=== PATIENT | male | born 1985 | race African-American/Black ===

== ENCOUNTER 2020-06-03 12:36 | Outpatient (REF) | payer MEDICAID, SELFPAY | END 2020-06-03 12:37 | disposition home or self-care (01) | LOC: HO.LAB 12:36 | PROVIDERS: PCP Internal Medicine; Visit Provider Internal Medicine | DX: Z20.828 Contact with and (suspected) exposure to other viral communicable diseases (principal) | CPT/HCPCS: C9803; U0003 ==

== ENCOUNTER 2020-11-11 09:09 | Outpatient (REF) | payer MEDICAID, SELFPAY ==
--- NOTE | ~2020-11-11 | XR_ITS ---
EXAMINATION: XR WRIST, RIGHT CLINICAL INFORMATION: M25.531 - Pain in right wrist COMPARISON: Radiographs right wrist 07/27/2019, MR right wrist 10/18/2019. TECHNIQUE: The right wrist is imaged in 3 views. FINDINGS: Bony mineralization appears normal. The ulnar variance is neutral. There is dorsal bowing distal ulna. Small metallic orthopedic anchor is within the distal ulnar. There is no acute or healing fracture or destructive process. No periostitis. No dislocation. No joint narrowing or erosive change. XR/XR wrist RT min 3V IMPRESSION: 1. Orthopedic metallic anchor within the distal ulna. Dorsal bowing distal ulnar. 2. No acute or healing fracture, dislocation, destructive process, or arthropathy.
== END 2020-11-11 09:10 | disposition home or self-care (01) ==
LOC: HO.HOSX 09:09
PROVIDERS: Visit Provider Orthopaedic Surgery
DX: M25.531 Pain in right wrist (principal)
CPT/HCPCS: 73110; 99202

== ENCOUNTER → 2021-01-03 14:23 | Outpatient (BNVA) | payer MEDICAID, SELFPAY | PROVIDERS: PCP Internal Medicine; Visit Provider Nurse Practitioner Family | DX: M25.531 Pain in right wrist (principal); M79.18 Myalgia, other site; M54.2 Cervicalgia | CPT/HCPCS: 99202 ==

== ENCOUNTER → 2021-01-15 13:37 | Outpatient (BNVA) | payer MEDICAID, SELFPAY | PROVIDERS: Visit Provider Orthopaedic Surgery | DX: M25.531 Pain in right wrist (principal) | CPT/HCPCS: 99212 ==

== ENCOUNTER → 2021-02-04 14:24 | Outpatient (BNVA) | payer MEDICAID, SELFPAY | PROVIDERS: PCP Internal Medicine; Visit Provider Nurse Practitioner Family | DX: M25.531 Pain in right wrist (principal); M79.18 Myalgia, other site; M54.2 Cervicalgia | CPT/HCPCS: 99212 ==

== ENCOUNTER 2022-05-11 08:57 | Outpatient (REF) | payer MEDICAID, SELFPAY ==
--- NOTE | ~2022-05-11 | US_ITS ---
EXAMINATION: US ABDOMEN COMPLETE CLINICAL INFORMATION: Abdominal pain. COMPARISON: CT abdomen without contrast 09/05/2018. Ultrasound abdomen complete 01/11/2017. TECHNIQUE: Real-time imaging of the abdominal viscera. FINDINGS: PANCREAS: Normal ABDOMINAL AORTA: The proximal, mid, and distal segments are normal in caliber. INFERIOR VENA CAVA: Visualized portions are normal. LIVER: Normal. The liver is normal in size. The liver contour is normal. Parenchymal echogenicity is normal. No focal hepatic lesion. There is no intrahepatic biliary duct dilatation seen. GALLBLADDER: The gallbladder is physiologically distended. Multiple mobile gallstones are present. No evidence of gallbladder wall thickening or pericholecystic fluid. COMMON BILE DUCT: Normal in caliber measuring 0.3 cm in diameter. RIGHT KIDNEY: Normal. No hydronephrosis. No renal calculi or focal parenchymal lesions. The kidney measures 12.0 cm in maximum dimension. LEFT KIDNEY: Normal. No hydronephrosis. No renal calculi or focal parenchymal lesions. The kidney measures 13.0 cm in maximum dimension. SPLEEN: Normal. The spleen measures 11.2 cm in maximum dimension. FREE FLUID: None US/US abdomen complete IMPRESSION: Cholelithiasis without wall thickening. The rest of the abdominal ultrasound is unremarkable.
== END 2022-05-11 08:58 | disposition home or self-care (01) ==
LOC: HO.US 08:57
PROVIDERS: Visit Provider Internal Medicine
DX: K85.90 Acute pancreatitis without necrosis or infection, unspecified (principal); R10.9 Unspecified abdominal pain
CPT/HCPCS: 76700

== ENCOUNTER 2023-01-05 12:48 | Outpatient (REF) | payer MEDICAID, SELFPAY ==
[2023-01-05 16:33] LABS: MANUAL DIFF FLAG NO
[2023-01-05 16:37] LABS: Basophils Absolute Auto 0.1 X10*3/uL (0.0-0.2); Eosinophils Absolute Auto 0.2 X10*3/uL (0.0-0.4); Eosinophils Percent Auto 2.2 % (0-4); Hematocrit 44.7 % (42.0-52.0); Hemoglobin 15.1 g/dl (14.0-18.0); Imm Gran Abs Auto 0.02 X10*3/uL (0.00-0.03); Imm Gran Pct Auto 0.3 % (0.0-0.4); Lymphocytes Absolute Auto 2.2 X10*3/uL (1.2-4.9); Lymphocytes Percent Auto 32.8 % (20-40); Mean Corpuscular HGB Conc 33.8 g/dl (31.0-36.0); Mean Corpuscular Hemoglobin 26.2 pg (27.0-33.0); Mean Corpuscular Volume 77.6 fL (80.0-98.0); Mean Platelet Volume 9.9 fL (9.4-12.4); Monocytes Absolute Auto 0.4 X10*3/uL (0.1-1.2); Monocytes Percent Auto 6.5 % (2-11); Neutrophils Absolute Auto 3.9 x10*3/uL (2.0-8.3); Neutrophils Percent Auto 57.2 % (45-73); Platelet Count 209 X10*3/uL (160-400); Red Blood Count 5.76 X10*6/uL (4.60-5.80); White Blood Count 6.7 X10*3/uL (4.8-10.8)
[2023-01-05 16:51] LABS: Estimated Average Glucose 108 mg/dL; Hemoglobin A1c % 5.4 %
[2023-01-05 16:59] LABS: Alanine Aminotransferase 22 U/L (0-40); Albumin Level 4.7 g/dL (3.5-5.0); Alkaline Phosphatase 65 U/L (39-117); Anion Gap 16 (12-20); Aspartate Amino Transferase 21 U/L (5-37); Bilirubin Total 0.5 mg/dL (0.0-1.0); Blood Urea Nitrogen 9 mg/dL (9-16); Calcium 9.9 mg/dL (8.4-10.2); Carbon Dioxide 23 mmol/L (22-29); Chloride 106 mmol/L (96-108); Estimated Glomerular Filt Rate > 60; Glucose Random 103 mg/dL (60-115); Potassium 4.3 mmol/L (3.3-5.1); Sodium 141 mmol/L (135-145); Total Protein 7.9 g/dL (6.5-8.0)
[2023-01-05 17:19] LABS: TSH reflex Free T4 0.92 uIU/mL (0.32-4.0)
[2023-01-05 17:33] LABS: Folate 9.8 ng/mL (> or = 4.0); Vitamin B12 528 pg/mL (200-900)
== END 2023-01-05 12:49 | disposition home or self-care (01) ==
LOC: HO.HHCL 12:48
PROVIDERS: Visit Provider Internal Medicine
DX: K80.20 Calculus of gallbladder without cholecystitis without obstruction (principal); K29.20 Alcoholic gastritis without bleeding; R53.83 Other fatigue
CPT/HCPCS: 36415; 80053; 82607; 82746; 83036; 84443; 85025

== ENCOUNTER 2023-02-23 10:29 | Outpatient (AMB) | payer MEDICAID, SELFPAY ==
--- NOTE | 2023-02-23 10:31 | MHC.OFFVIS ---
Intake Vital Signs 02/23/23 10:39 Height 5 ft 6 in Weight 200 lb BMI 32.3 BP 112/65 Blood Pressure Location Lt brachial Position Sitting Pulse 79 Intake Visit Reasons: Cholelithiasis Intake Note: Patient is seen in office for evaluation and treatment of cholelithiasis. Patient c/o: admits to abdominal pain for the past month, minimal nausea, denies vomit, diarrhea, constipation, had prior imaging done, Puttier Required: No Accompanied by: Family/Other Allergies seafood Allergy (Verified 02/23/23 10:37) Unknown Medication List - Last Reconciled 02/23/23 by Poncho Tolliver MD No Known Home Meds HPI HPI Comments History of Present Illness Details 38-year-old male patient presenting for evaluation of gallstones. He reports intermittent abdominal pain mainly in the right upper quadrant. He apparently was found to have elevated liver functions as well and subsequently underwent evaluation with ultrasound of the abdomen. Evaluation revealed multiple gallstones within the gallbladder without evidence of wall thickening or pericholecystic fluid. Common bile duct was normal as well. Patient presents today to discuss possible cholecystectomy. He reports intolerance of fatty foods, usually immediately after eating the food. He denies nausea, vomiting, fever, or chills. His bowels have been normal. FORMERLY [facility] Medical History Seasonal allergic rhinitis Surgical History H/O right wrist surgery Family History Mother HTN (hypertension) Social History Alcohol intake: current Patient Tobacco Use Status: Never used Tobacco Substance Use Type: Marijuana Current occupational status: unemployed Current occupation: rt hand Review of Systems Const All systems reviewed & are unremarkable except as noted in HPI and below GI Reports as per HPI and Reports abdominal pain Physical Exam Vital Signs: Last Vital Signs Pulse 79 02/23/23 10:39 BP 112/65 02/23/23 10:39 BMI result Body Mass Index 32.3 Const General: cooperative and no acute distress Nutritional Appearance: well nourished Orientation/consciousness: patient oriented x3 Limitations: no limitations HEENT Head: Yes normocephalic and Yes atraumatic Ears: hearing grossly normal bilaterally Resp Effort & Inspection: normal respiratory effort, no audible wheezes, no cough and no respiratory distress Cardio Jugular venous distension: no JVD GI Inspection: Yes normal to inspection Palpation (GI): Soft to palpation, nontender, no guarding and not rigid Auscultation: normal bowel sounds Rectal Exam - Male: Yes deferred Skin Other: Warm, dry, no rash Neuro General: patient oriented x3 Extrem General: Yes no clubbing, cyanosis or edema Assessment & Plan Assessment & Plan (1) Cholelithiasis: Code(s): K80.20 - Calculus of gallbladder without cholecystitis without obstruction Qualifiers: Cholelithiasis location: gallbladder Cholecystitis presence: without cholecystitis Biliary obstruction: without biliary obstruction Qualified Code(s): K80.20 - Calculus of gallbladder without cholecystitis without obstruction (2) Biliary colic: Code(s): K80.50 - Calculus of bile duct without cholangitis or cholecystitis without obstruction Plan 38-year-old male patient presenting with episodes of abdominal pain in the right upper quadrant found to have gallstones within the gallbladder. Although his symptoms may be multifactorial, it is certainly possible at some or all of his symptoms may be related to the gallbladder. I reviewed the laparoscopic cholecystectomy procedure and after discussion of the procedure, risks, and alternatives, he wishes to avoid surgery at this time. I reviewed the symptoms that would necessitate a return to the office or emergency room and he expressed understanding. He should follow up as needed. Coding Level of Care Code New Pt Level 4 (09707) Diagnoses Calculus of gallbladder without cholecystitis without obstruction K80.20 Cholelithiasis location: gallbladder Cholecystitis presence: without cholecystitis Biliary obstruction: without biliary obstruction Biliary colic K80.50
[2023-02-23 10:39] VITALS: BP 112/65; PULSE 79; BMI 32.3
== END 2023-02-23 10:51 | disposition home or self-care (01) ==
PROVIDERS: PCP Internal Medicine; Referring Provider Internal Medicine; Visit Provider Surgery
DX: K80.20 Calculus of gallbladder without cholecystitis without obstruction (principal); K80.50 Calculus of bile duct without cholangitis or cholecystitis without obstruction
CPT/HCPCS: 99204

== ENCOUNTER → 2023-02-23 10:29 | Outpatient (BNVA) | payer MEDICAID, SELFPAY | PROVIDERS: PCP Internal Medicine; Referring Provider Internal Medicine; Visit Provider Surgery ==

== ENCOUNTER 2023-04-15 12:46 | Outpatient (REF) | payer MEDICAID, SELFPAY ==
--- NOTE | ~2023-04-15 | XR_ITS ---
EXAMINATION: XR WRIST, LEFT CLINICAL INFORMATION: Tendinitis of wrist COMPARISON: None TECHNIQUE: PA, oblique, navicular and 2 lateral views of the left wrist. FINDINGS: Bone mineralization is normal. Mild degenerative changes in the first carpometacarpal joint with joint space narrowing and hypertrophic change. Alignment is preserved. XR/XR wrist LT min 3V IMPRESSION: Mild degenerative changes in the first carpometacarpal joint. Recommend follow-up imaging in 10-14 days if fracture is suspected.
== END 2023-04-15 12:47 | disposition home or self-care (01) ==
LOC: HO.XRAY 12:46
PROVIDERS: PCP Internal Medicine; Visit Provider Internal Medicine
DX: M77.8 Other enthesopathies, not elsewhere classified (principal)
CPT/HCPCS: 73110